=== PATIENT | female | born 1945 ===

== ENCOUNTER 2017-10-04 23:40 | Inpatient (IN) | payer MEDICARE ==
[2017-10-04 23:40] VITALS: BMI 22.6
--- NOTE | 2017-10-05 00:31 | C.PDOC ---
History Of Present Illness 72 year old female with PMHx of ischemic stroke on 2016 presents to the ED for evaluation. Patient was treated at [facility], patient had resulted left sided hemiparesis. Patient has been going to PT since that time. Patient now is c/o worsening weakness to her left side. Patient went to PT today but she reports she has been feeling weaker than usual, decreased ability to walk with her cane. Patient denies injury, fall, trauma, visual changes, headache, nausea , vomit, sensory loss. Chief Complaint (Nursing): Weakness/Neurological Deficit History Per: Patient History/Exam Limitations: no limitations Onset/Duration Of Symptoms: Days Current Symptoms Are (Timing): Still Present Number Of Syncopal Episodes: 1 Activity At Onset Of Symptoms: Walking Seizure Or Post-ictal Symptoms: None Fall Associated With With Symptoms: No Severity: None Recent travel outside of the [place]: No Additional History Per: Patient Past Medical History Reviewed: Historical Data, Nursing Documentation, Vital Signs Vital Signs: Last Vital Signs Temp 97.9 F 10/05/17 03:12 Pulse 74 10/05/17 03:12 Resp 20 10/05/17 03:12 BP 164/70 H 10/05/17 03:12 Pulse Ox 97 10/05/17 03:12 - Medical History PMH: Gastritis, HTN, Hypercholesterolemia Denies: HIV, Chronic Kidney Disease Other PMH: Ischemic stroke 2017 Surgical History: No Surg Hx - [facility] Procedures ENDO EXCISION/DEST OF LESION OR TISSUE OF STOMACH (11/08/13) ENDOSC POLYPECTOMY OF LG INTEST (11/08/13) EXERCISE TREATMENT OF MUSCULOSK WHOLE USING ASSIST EQUIPMENT (04/04/17) GAIT TRAINING/AMBULAT TREATMENT USING ASSIST EQUIPMENT (04/04/17) HOME MANAGEMENT TREATMENT USING ASSIST EQUIPMENT (04/04/17) Family History: States: Unknown Family Hx - Social History Hx Alcohol Use: No Hx Substance Use: No - Immunization History Hx Tetanus Toxoid Vaccination: No Hx Influenza Vaccination: Yes Hx Pneumococcal Vaccination: No Review Of Systems Constitutional: Negative for: Fever, Chills Eyes: Negative for: Vision Change Cardiovascular: Negative for: Chest Pain, Palpitations Respiratory: Negative for: Cough, Shortness of Breath Skin: Negative for: Rash Neurological: Positive for: Weakness. Negative for: Headache, Dizziness Physical Exam - Physical Exam Appears: Non-toxic, No Acute Distress Skin: Normal Color, Warm, Dry Head: Atraumatic, Normacephalic Eye(s): bilateral: Normal Inspection, PERRL, EOMI Oral Mucosa: Moist Neck: Normal ROM, Supple Chest: Symmetrical Cardiovascular: Rhythm Regular Respiratory: Normal Breath Sounds, No Rales, No Rhonchi, No Wheezing Gastrointestinal/Abdominal: Soft, No Tenderness, No Guarding, No Rebound Extremity: Left: Other (left upper arm muscle atrophy 2/5 strenght, leg 2/5 strenght ), Bilateral: Atraumatic, Normal Color And Temperature Pulses: Left Radial: Normal, Right Radial: Normal, Left Dorsalis Pedis: Normal, Right Dorsalis Pedis: Normal Neurological/Psych: Oriented x3, Normal Speech, Normal Cranial Nerves, Normal Sensation Gait: With Assistance ED Course And Treatment - Laboratory Results Result Diagrams: 10/05/17 01:43 10/05/17 01:43 ECG: Interpreted By Me, Viewed By Me ECG Rhythm: Sinus Rhythm, 1st Degree HB, R BBB, Nonspecific Changes (St/T ) Interpretation Of ECG: Compared to old EKG RBBB and left anterior hemiblock are new Rate From EC (BPM) O2 Sat by Pulse Oximetry: 97 (ON RA) Pulse Ox Interpretation: Normal - CT Scan/US CT head Other Rad Studies (CT/US): Read By Radiologist, Radiology Report Reviewed CT/US Interpretation: EXAM: CT Head Without Intravenous Contrast. CLINICAL HISTORY: 72 years old, female; Seizure. TECHNIQUE: Axial computed tomography images of the head/brain without intravenous contrast. All CT scans at. this facility use at least one of these dose optimization techniques: automated exposure control; mA. and/or kV adjustment per patient size (includes targeted exams where dose is matched to clinical. indication); or iterative reconstruction. COMPARISON: No relevant prior studies available. FINDINGS: Brain: Mild cerebral atrophy with prominence of the bifrontal sulci. Old infarcts in the right side of the. antonio, right caudate nucleus and right internal capsule. Hypoattenuation in the periventricular white. matter adjacent to the right frontal horn. Bilateral basal ganglia calcifications. There is no acute. cortical infarct, parenchymal hemorrhage, edema, midline shift or extra-axial collection. The. cerebellum is unremarkable. Small falcine lipoma. Ventricles: The ventricles are normal in size. Bones/joints: No skull fracture. Soft tissues: Calcified transverse ligament. Vasculature: The intracranial carotid arteries are calcified. 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 Dehiscence or old fracture of the right lamina papyracea. Small intraorbital fat protruding into the right ethmoid air cell. No air-fluid levels in the paranasal. sinuses. Mastoid air cells: The mastoid air cells are clear without air-fluid levels. Orbits: Left cataract surgery. IMPRESSION : Old infarcts in the right side of the antonio, right caudate nucleus and right internal capsule. No acute. infarct or hemorrhage. NIHSS Stroke Scale 2 - Date/Time Evaluation Performed Date Performed: 10/05/17 Time Performed: 02:22 When Was NIHSS Performed: 24 hours post onset S/S Medical Decision Making Medical Decision Making: Impression: subacute new left hemiparesis, started more than 24 hrs ago Plan: * CT head * EKG * Labs * UA * Admit patient to Medicine for further evaluation. Disposition - Disposition Disposition: HOSPITALIZED Disposition Time: 06:44 Condition: FAIR - Clinical Impression Clinical Impression: Acute CVA (cerebrovascular accident) - Scribe Statement The provider has reviewed the documentation as recorded by the Scribe Yordan Keenan All medical record entries made by the Scribe were at my direction and personally dictated by me. I have reviewed the chart and agree that the record accurately reflects my personal performance of the history, physical exam, medical decision making, and the department course for this patient. I have also personally directed, reviewed, and agree with the discharge instructions and disposition.
[2017-10-05 01:46] LABS: BASO # 0.1 K/uL (0.0-0.2); BASO % 0.9 % (0.0-2.0); EOS # 0.1 K/uL (0.0-0.7); HEMOGLOBIN 14.1 g/dL (11.0-16.0); LYMPH # 1.3 K/uL (1.0-4.3); LYMPH % 12.4 % (20.0-40.0); MEAN CELL VOLUME 83.2 fL (81.0-99.0); MEAN CORPUSCULAR HEMOGLOBIN 28.4 pg (27.0-31.0); MEAN CORPUSCULAR HGB CONC 34.1 g/dL (33.0-37.0); MEAN PLATELET VOLUME 8.6 fL (7.2-11.7); MONO # 0.9 K/uL (0.0-0.8); MONO % 8.5 % (0.0-10.0); NEUT # 8.1 K/uL (1.8-7.0); NEUT % 77.2 % (50.0-75.0); NRBC % 0.1 % (0.0-2.0); RBC 4.97 Mil/uL (3.80-5.20); RED CELL DISTRIBUTION WIDTH 13.9 % (11.5-14.5); WHITE BLOOD COUNT 10.5 K/uL (4.8-10.8)
[2017-10-05 01:58] LABS: ALB/GLOB RATIO 1.3 (1.0-2.1); ALBUMIN 4.6 g/dL (3.5-5.0); GFR AFRICAN-AMERICAN > 60; GFR NON-AFRICAN AMERICAN > 60
[2017-10-05 02:11] LABS: ALT/SGPT 35 U/L (9-52); AST/SGOT 54 U/L (14-36); BLOOD UREA NITROGEN 13 mg/dL (7-17)
[2017-10-05] MEDS ORDERED: Potassium Chloride 20 mEq/15 ml LIQ UD PO STA (02:27)
[2017-10-05 03:00] LABS: SQUAMOUS EPITHIAL 23 /hpf (0-5); URINE BACTERIA RARE (<OCC); URINE BILIRUBIN NEGATIVE (NEGATIVE); URINE BLOOD 2+ (NEGATIVE); URINE CLARITY Hazy (Clear); URINE COLOR Yellow (YELLOW); URINE GLUCOSE (UA) 3+ mg/dL (Normal); URINE LEUKOCYTE ESTERASE 1+ Leu/uL (Negative); URINE PROTEIN 2+ mg/dL (NEGATIVE); URINE UROBILINOGEN NORMAL mg/dL (0.2-1.0)
[2017-10-05] MEDS ORDERED: OLOPATADINE 0.1% OU PRN (03:24)
--- NOTE | 2017-10-05 08:36 | CP.PCM.HP ---
History of Present Illness - History of Present Illness History of Present Illness: This is a 72 y/o female diabetic, hypertensive with history of stroke in February 2017 who was brought to the ER because of worsening L hemiparesis. Patient has had intensive physical therapy since her stroke and was able to walk with walker/cane as of last office visit about 6 weeks ago. She has been on home PT and has progressed well until the day of admission when she suddenly became very weak and noted that her L hemiparesis has worsened. She said that she woke up on the morning of admission and could not get OOB feeling very weak and was unable to move her L leg like she did the previous day. A new physical therapist came to her house and she was unable to do the exercises she used to do with her old physical therapist who was given another assignment. She denies any history of fall or any trauma. No headache or seizure. She did complain of loss of appetite and inability to eat because of nausea or vomiting over the last week. She claims to have lost about 20 lbs over the last month as she kept bringing up whitish pleghm unable to eat much. She denies any abdominal pain, shortness of breath or palpitations. She does admit to occasional lightheadedness. She was advised to be admitted for further evaluation for a probable new stroke. She denies any dysuria or fever but claims to be going to have frequency of urination. Review of Systems - Review of Systems All systems: reviewed and no additional remarkable complaints except - Constitutional Constitutional: Weight Loss, Weakness - Cardiovascular Cardiovascular: Lightheadedness - Gastrointestinal Gastrointestinal: Bloating, Dyspepsia, Nausea, Vomiting - Musculoskeletal Musculoskeletal: Abnormal Gait - Neurological Neurological: Abnormal Gait, Dizziness, Focal Weakness Past Patient History - Infectious Disease Hx of Infectious Diseases: None - Past Medical History & Family History Past Medical History?: Yes - Past Social History Smoking Status: Never Smoked Chewing Tobacco Use: No Cigar Use: No Alcohol: None Home Situation {Lives}: Alone - CARDIAC Hx Hypercholesterolemia: Yes Hx Hypertension: Yes - PULMONARY Hx Respiratory Disorders: No - NEUROLOGICAL Hx Neurological Disorder: Yes HX Cerebrovascular Accident: Yes (feb 2017) - HEENT Hx HEENT Problems: Yes Other/Comment: hx right eye surgery-macular - RENAL Hx Chronic Kidney Disease: No - ENDOCRINE/METABOLIC Hx Endocrine Disorders: Yes Hx Diabetes Mellitus Type 2: Yes - HEMATOLOGICAL/ONCOLOGICAL Hx Human Immunodeficiency Virus (HIV): No - INTEGUMENTARY Hx Dermatological Problems: No - MUSCULOSKELETAL/RHEUMATOLOGICAL Hx Musculoskeletal Disorders: Yes Hx Falls: Yes (2005;February 2017) - GASTROINTESTINAL Hx Gastrointestinal Disorders: Yes Hx Gastritis: Yes Hx Vomiting: Yes - GENITOURINARY/GYNECOLOGICAL Hx Genitourinary Disorders: No - PSYCHIATRIC Hx Substance Use: No - SURGICAL HISTORY Hx Surgeries: Yes Hx Hysterectomy: Yes (30 yrs ago) Other/Comment: pus removed from left leg - ANESTHESIA Hx Anesthesia: Yes Hx Anesthesia Reactions: No Hx Malignant Hyperthermia: No Meds Allergies/Adverse Reactions: Allergies Allergy/AdvReac Type Severity Reaction Status Date / Time aspirin AdvReac Intermediate ITCHING Verified 04/04/17 20:11 Physical Exam - Constitutional Appears: No Acute Distress - Head Exam Head Exam: NORMAL INSPECTION - Eye Exam Eye Exam: Normal appearance - ENT Exam ENT Exam: Mucous Membranes Moist, Normal Exam - Neck Exam Neck exam: Positive for: Normal Inspection - Respiratory Exam Respiratory Exam: Clear to Auscultation Bilateral, NORMAL BREATHING PATTERN - Cardiovascular Exam Cardiovascular Exam: REGULAR RHYTHM, +S1, +S2 - GI/Abdominal Exam GI & Abdominal Exam: Normal Bowel Sounds, Soft - Extremities Exam Extremities exam: Positive for: pedal pulses present - Neurological Exam Neurological exam: Alert, Oriented x3 Additional comments: L hemiparesis, L Babinski+ - Psychiatric Exam Psychiatric exam: Normal Affect, Normal Mood - Skin Skin Exam: Dry, Intact, Normal Color, Warm Results - Vital Signs Recent Vital Signs: Last Vital Signs Temp 97.9 F 10/05/17 03:12 Pulse 74 10/05/17 03:12 Resp 20 10/05/17 03:12 BP 164/70 H 10/05/17 03:12 Pulse Ox 97 10/05/17 06:45 - Labs Result Diagrams: 10/05/17 01:43 10/05/17 01:43 Labs: Laboratory Results - last 24 hr 10/05/17 10/05/17 10/05/17 00:24 01:43 01:43 WBC 10.5 RBC 4.97 Hgb 14.1 Hct 41.3 MCV 83.2 MCH 28.4 MCHC 34.1 RDW 13.9 Plt Count 285 MPV 8.6 Neut % (Auto) 77.2 H Lymph % (Auto) 12.4 L [place] % (Auto) 8.5 Eos % (Auto) 1.0 Baso % (Auto) 0.9 Neut # (Auto) 8.1 H Lymph # (Auto) 1.3 [place] # (Auto) 0.9 H Eos # (Auto) 0.1 Baso # (Auto) 0.1 Sodium 142 Potassium 3.3 L Chloride 103 Carbon Dioxide 21 L Anion Gap 21 H BUN 13 Creatinine 0.8 Est GFR ( Amer) > 60 Est GFR (Non-Af Amer) > 60 POC Glucose (mg/dL) 196 H Random Glucose 207 H Calcium 10.0 Total Bilirubin 1.1 AST 54 H ALT 35 Alkaline Phosphatase 117 Troponin I 0.0370 Total Protein 8.1 Albumin 4.6 Globulin 3.5 Albumin/Globulin Ratio 1.3 Urine Color Urine Clarity Urine pH Ur Specific [place] Urine Protein Urine Glucose (UA) Urine Ketones Urine Blood Urine Nitrate Urine Bilirubin Urine Urobilinogen Ur Leukocyte Esterase Urine WBC (Auto) Urine RBC (Auto) Ur Squamous Epith Cells Urine Bacteria Hyaline Casts 10/05/17 02:53 WBC RBC Hgb Hct MCV MCH MCHC RDW Plt Count MPV Neut % (Auto) Lymph % (Auto) [place] % (Auto) Eos % (Auto) Baso % (Auto) Neut # (Auto) Lymph # (Auto) [place] # (Auto) Eos # (Auto) Baso # (Auto) Sodium Potassium Chloride Carbon Dioxide Anion Gap BUN Creatinine Est GFR ( Amer) Est GFR (Non-Af Amer) POC Glucose (mg/dL) Random Glucose Calcium Total Bilirubin AST ALT Alkaline Phosphatase Troponin I Total Protein Albumin Globulin Albumin/Globulin Ratio Urine Color Yellow Urine Clarity Hazy Urine pH 5.0 Ur Specific [place] 1.016 Urine Protein 2+ H Urine Glucose (UA) 3+ H Urine Ketones 1+ H Urine Blood 2+ H Urine Nitrate Negative Urine Bilirubin Negative Urine Urobilinogen Normal Ur Leukocyte Esterase 1+ H Urine WBC (Auto) 37 H Urine RBC (Auto) 36 H Ur Squamous Epith Cells 23 H Urine Bacteria Rare Hyaline Casts 3-5 H Assessment & Plan (1) Acute CVA (cerebrovascular accident) Assessment and Plan: Worsening L hemiparesis most probably a new stroke on old one in Feb 2017. Will get neuro consutl. CT Scan of the head reportedlys hows old cerebral infarct. MRI of the Head requested. Monitor neurological status. On Plavix and ASA. Status: Acute Priority: High (2) UTI (urinary tract infection) Assessment and Plan: abnormal u/a. Will send for c/s and start on antibiotic empirically. Status: Acute Priority: High (3) Weight loss of more than 10% body weight Assessment and Plan: Patient also complaining of persistent nausea and vomiting over the last 1-2 weeks and unable to eat well. R/O GERD vs diabetic gastroparesis. Was on omeprazole with no improvement and started now on metoclopramide. Status: Acute Priority: High (4) Hypertension Assessment and Plan: Seems under control on multiple meds. Will continue same for now and monitor BP. Status: Acute Priority: High (5) Diabetes mellitus Assessment and Plan: On Metformin and Januvia. Will get HgbA1c and put on accucheck Status: Acute Priority: High
--- NOTE | 2017-10-05 09:57 | CT ---
PROCEDURE: CT HEAD WITHOUT CONTRAST. HISTORY: seizure COMPARISON: Comparison made with CT scan brain dated 02/05/2016. TECHNIQUE: Axial computed tomography images were obtained through the head/brain without intravenous contrast. Radiation dose: Total exam DLP = 691.78 mGy-cm. This CT exam was performed using one or more of the following dose reduction techniques: Automated exposure control, adjustment of the mA and/or kV according to patient size, and/or use of iterative reconstruction technique. FINDINGS: HEMORRHAGE: No acute parenchymal, subarachnoid or extra-axial hemorrhage. Hemorrhage. BRAIN: Mild chronic periventricular white matter ischemic changes with chronic appearing bilateral basal nuclei lacunar type infarcts the largest involving the right caudate head anterior limb right internal capsule. . There is also relatively large chronic appearing right-sided pontine chronic infarct. There is a small amount of fat within the anterior aspect of the interhemispheric fissure anteriorly consistent with some residual primitive menix No obvious parenchymal nor extra-axial mass or collection seen on this noncontrast study. Moderate generalized volume loss. Vascular calcifications both carotid siphons and the left vertebral artery. VENTRICLES: Unremarkable. No hydrocephalus. CALVARIUM: Unremarkable. . . PARANASAL SINUSES: Unremarkable as visualized. No significant inflammatory changes. . 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 MASTOID AIR CELLS: Unremarkable as visualized. No inflammatory changes. OTHER FINDINGS: Re- demonstrated old fracture deformities of the right orbital floor and right lamina papyracea. . Interval right-sided cataract surgery. IMPRESSION: No acute intracranial hemorrhage. Chronic white matter, basal nuclei and brainstem ischemic changes as described. . Moderate generalized volume loss
[2017-10-05 10:33] LABS: HDL CHOLESTEROL 38 mg/dL (30-70)
[2017-10-05 10:43] LABS: LDL CHOLESTEROL 30 mg/dL (0-129)
[2017-10-05] MEDS: (Novolin R) Insulin Human Regular 100 units/ml vial SC SCH ×3 (12:00→21:52)
--- NOTE | 2017-10-05 12:30 | CP.PCM.CON ---
History of Present Illness - History of Present Illness History of Present Illness: Neurology Consultation Note: Mrs. Burrows is a 72-year-old woman with a past medical history of DM, HTN, previous stroke in , who has some residual left side weakness, but was able to ambulate with a walker, but yesterday morning, she appeared to be significantly weaker than the previous day. She has had decreased appetite and complains of nausea/vomiting with a weight loss of about 15-20 lbs over the last month. CT scan of the head showed a chronic right pontine stroke, but no new findings. Labs were significant for UTI and hyperglycemia. Neurology was consulted to assist with the management and care. Review of Systems - Review of Systems All systems: reviewed and no additional remarkable complaints except Past Patient History - Infectious Disease Hx of Infectious Diseases: None - Past Medical History & Family History Past Medical History?: Yes - Past Social History Smoking Status: Never Smoked Chewing Tobacco Use: No Cigar Use: No Alcohol: None Home Situation {Lives}: Alone - CARDIAC Hx Hypercholesterolemia: Yes Hx Hypertension: Yes - PULMONARY Hx Respiratory Disorders: No - NEUROLOGICAL Hx Neurological Disorder: Yes HX Cerebrovascular Accident: Yes (feb 2017) - HEENT Hx HEENT Problems: Yes Other/Comment: hx right eye surgery-macular - RENAL Hx Chronic Kidney Disease: No - ENDOCRINE/METABOLIC Hx Endocrine Disorders: Yes Hx Diabetes Mellitus Type 2: Yes - HEMATOLOGICAL/ONCOLOGICAL Hx Human Immunodeficiency Virus (HIV): No - INTEGUMENTARY Hx Dermatological Problems: No - MUSCULOSKELETAL/RHEUMATOLOGICAL Hx Musculoskeletal Disorders: Yes Hx Falls: Yes (2005;February 2017) - GASTROINTESTINAL Hx Gastrointestinal Disorders: Yes Hx Gastritis: Yes Hx Vomiting: Yes - GENITOURINARY/GYNECOLOGICAL Hx Genitourinary Disorders: No - PSYCHIATRIC Hx Substance Use: No - SURGICAL HISTORY Hx Surgeries: Yes Hx Hysterectomy: Yes (30 yrs ago) Other/Comment: pus removed from left leg - ANESTHESIA Hx Anesthesia: Yes Hx Anesthesia Reactions: No Hx Malignant Hyperthermia: No Meds Allergies/Adverse Reactions: Allergies Allergy/AdvReac Type Severity Reaction Status Date / Time aspirin AdvReac Intermediate ITCHING Verified 04/04/17 20:11 - Medications Medications: Current Medications Amlodipine Besylate (Norvasc) 2.5 mg PO DAILY SHEY Last Admin: 10/05/17 11:02 Dose: 2.5 mg Clonidine HCl (Catapres-Tts2 0.2 Mg/24 Hr) 1 patch TD Q7D@1000 [facility] Clopidogrel Bisulfate (Plavix) 75 mg PO DAILY [facility] Last Admin: 10/05/17 11:02 Dose: 75 mg Insulin Human Regular (Novolin R) 0 unit SC ACHS [facility] PRN Reason: Protocol Labetalol HCl (Trandate) 200 mg PO BID [facility] Last Admin: 10/05/17 11:00 Dose: 200 mg Losartan Potassium (Cozaar) 100 mg PO DAILY [facility] Last Admin: 10/05/17 11:01 Dose: 100 mg Metformin HCl (Glucophage) 850 mg PO BID [facility] Last Admin: 10/05/17 11:02 Dose: 850 mg Metoclopramide HCl (Reglan) 5 mg PO TID [facility] Last Admin: 10/05/17 11:00 Dose: 5 mg Montelukast Sodium (Singulair) 10 mg PO HS [facility] Rosuvastatin Calcium (Crestor) 20 mg PO [facility] Physical Exam - Neurological Exam Neurological exam: Abnormal Gait, Alert, CN II-XII Intact, Oriented x3 Additional comments: AAOX3, speech was dysarthric. Reflexes brisk on the left upper and lower extremities with upgoing planar responses. Clonus was noted on LLE. Strength was 3/5 in both upper and lower extremities on the left. She had decreased hand etl analyst and her weakness was more proximal than distal on the LUE. Right upper and lower extremities were full in strength. Sensation was relatively symmetrical throughout. Gait was not assessed. Romberg was not assessed. Results - Vital Signs Recent Vital Signs: Last Vital Signs Temp 98.8 F 10/05/17 08:46 Pulse 75 10/05/17 08:46 Resp 18 10/05/17 08:46 BP 167/67 H 10/05/17 08:46 Pulse Ox 96 10/05/17 08:46 - Labs Result Diagrams: 10/05/17 01:43 10/05/17 01:43 Labs: Laboratory Results - last 24 hr 10/05/17 10/05/17 10/05/17 00:24 01:43 01:43 WBC 10.5 RBC 4.97 Hgb 14.1 Hct 41.3 MCV 83.2 MCH 28.4 MCHC 34.1 RDW 13.9 Plt Count 285 MPV 8.6 Neut % (Auto) 77.2 H Lymph % (Auto) 12.4 L [place] % (Auto) 8.5 Eos % (Auto) 1.0 Baso % (Auto) 0.9 Neut # (Auto) 8.1 H Lymph # (Auto) 1.3 [place] # (Auto) 0.9 H Eos # (Auto) 0.1 Baso # (Auto) 0.1 Sodium 142 Potassium 3.3 L Chloride 103 Carbon Dioxide 21 L Anion Gap 21 H BUN 13 Creatinine 0.8 Est GFR ( Amer) > 60 Est GFR (Non-Af Amer) > 60 POC Glucose (mg/dL) 196 H Random Glucose 207 H Calcium 10.0 Total Bilirubin 1.1 AST 54 H ALT 35 Alkaline Phosphatase 117 Troponin I 0.0370 Total Protein 8.1 Albumin 4.6 Globulin 3.5 Albumin/Globulin Ratio 1.3 Triglycerides 200 H Cholesterol 104 LDL Cholesterol Direct 30 HDL Cholesterol 38 Urine Color Urine Clarity Urine pH Ur Specific [place] Urine Protein Urine Glucose (UA) Urine Ketones Urine Blood Urine Nitrate Urine Bilirubin Urine Urobilinogen Ur Leukocyte Esterase Urine WBC (Auto) Urine RBC (Auto) Ur Squamous Epith Cells Urine Bacteria Hyaline Casts 10/05/17 10/05/17 10/05/17 02:53 06:11 11:02 WBC RBC Hgb Hct MCV MCH MCHC RDW Plt Count MPV Neut % (Auto) Lymph % (Auto) [place] % (Auto) Eos % (Auto) Baso % (Auto) Neut # (Auto) Lymph # (Auto) [place] # (Auto) Eos # (Auto) Baso # (Auto) Sodium Potassium Chloride Carbon Dioxide Anion Gap BUN Creatinine Est GFR ( Amer) Est GFR (Non-Af Amer) POC Glucose (mg/dL) 197 H 255 H Random Glucose Calcium Total Bilirubin AST ALT Alkaline Phosphatase Troponin I Total Protein Albumin Globulin Albumin/Globulin Ratio Triglycerides Cholesterol LDL Cholesterol Direct HDL Cholesterol Urine Color Yellow Urine Clarity Hazy Urine pH 5.0 Ur Specific [place] 1.016 Urine Protein 2+ H Urine Glucose (UA) 3+ H Urine Ketones 1+ H Urine Blood 2+ H Urine Nitrate Negative Urine Bilirubin Negative Urine Urobilinogen Normal Ur Leukocyte Esterase 1+ H Urine WBC (Auto) 37 H Urine RBC (Auto) 36 H Ur Squamous Epith Cells 23 H Urine Bacteria Rare Hyaline Casts 3-5 H Assessment & Plan (1) Left-sided weakness Assessment and Plan: The patient has a history of right pontine infarct and appears to have a UTI. There are no new findings on CT head to suggest a new stroke. However, CT is not as sensitive in the posterior fossa for acute findings. It is more likely that she has resurgence of the previous stroke symptoms due to UTI, rather than a new stroke. I recommend the followin. Telemetry 2. MRI brain without contrast, MRA head/neck without contrast 3. Echocardiogram 4. PT/OT eval and treatment 5. Lipid panel, HbA1c, B12, folate, homocysteine, vitamin D level, TSH, T3/4 6. Continue Plavix 75 mg daily 7. Fluids with NS at 100 mL/hr 8. Treat underlying infection 9. Normalize BP and serum glucose 10. Case management consult Thank you. Status: Acute Priority: High
--- NOTE | 2017-10-05 13:05 | RAD ---
PROCEDURE: Lateral chest performed. Correlation made with frontal view chest obtained on concurrent obstructive series. HISTORY: HTN, stroke COMPARISON: None available. FINDINGS: LUNGS: Minor linear atelectasis and or scarring changes left retrocardiac region. PLEURA: No pneumothorax or pleural fluid seen. CARDIOVASCULAR: Heart appears mildly enlarged. OSSEOUS STRUCTURES: Minor multilevel degenerative spondylosis of the thoracic spine. Minor chronic anterior wedge deformities of several mid thoracic segments. Mild diffuse demineralization. VISUALIZED UPPER ABDOMEN: No gross free intraperitoneal air seen under the diaphragmatic surfaces OTHER FINDINGS: None. IMPRESSION: No active disease.
[2017-10-05] MEDS: Ciprofloxacin 400mg/200ml D5W 400 MG/200 ML BAG IVPB SCH (15:01)
--- NOTE | 2017-10-05 16:01 | RAD ---
PROCEDURE: Radiographs of the chest and abdomen (obstructive series) HISTORY: nausea/vomiting COMPARISON: No prior. TECHNIQUE: AP radiograph of the chest, with upright and supine radiographs of the abdomen. FINDINGS: CHEST: Lungs: Clear. Cardiovascular: Normal size heart. No pulmonary vascular congestion. Pleura: No pleural fluid. No pneumothorax. Other findings: None. ABDOMEN AND PELVIS: Bowel: Unremarkable bowel gas pattern. No evidence of mechanical obstruction. Free air: None. Bones: Unremarkable. Other findings: None. IMPRESSION: Unremarkable radiographs of chest and abdomen. No evidence of mechanical bowel obstruction.
[2017-10-06] MEDS: Ciprofloxacin 400mg/200ml D5W 400 MG/200 ML BAG IVPB SCH ×2 (02:48→15:53)
--- NOTE | 2017-10-06 07:34 | CP.PCM.PN ---
Subjective - Date & Time of Evaluation Date of Evaluation: 10/06/17 Time of Evaluation: 07:31 - Subjective Subjective: Ms. Burrows was seen and examined at the bedside. She is alert, oriented in all spheres. She denies any dizziness, weakness, headache, nause, or vomiting. She is able to follow simple commands with her left side is weaker than the right side and able to let staff know her immediate needs. She has the SCD on her bilateral lower extremities. There was no untoward events overnight. Objective - Vital Signs/Intake and Output Vital Signs (last 24 hours): Temp Pulse Resp BP Pulse Ox 98 F 83 18 132/63 98 10/06/17 04:05 10/06/17 04:05 10/06/17 04:05 10/06/17 04:05 10/06/17 04:05 Intake and Output: 10/06/17 10/06/17 06:59 18:59 Intake Total 240 Balance 240 - Medications Medications: Current Medications Amlodipine Besylate (Norvasc) 2.5 mg PO DAILY [facility] Last Admin: 10/05/17 11:02 Dose: 2.5 mg Clonidine HCl (Catapres-Tts2 0.2 Mg/24 Hr) 1 patch TD Q7D@1000 [facility] Clopidogrel Bisulfate (Plavix) 75 mg PO DAILY [facility] Last Admin: 10/05/17 11:02 Dose: 75 mg Heparin Sodium (Porcine) (Heparin) 5,000 units SC Q12 [facility] Ciprofloxacin (Cipro 400mg/200ml Dsw) 400 mg in 200 mls @ 133 mls/hr IVPB Q12H [facility] PRN Reason: Protocol Last Admin: 10/06/17 02:48 Dose: 133 mls/hr Sodium Chloride (Sodium Chloride 0.9%) 1,000 mls @ 100 mls/hr IV .Q10H [facility] Insulin Human Regular (Novolin R) 0 unit SC ACHS [facility] PRN Reason: Protocol Last Admin: 10/05/17 21:52 Dose: Not Given Labetalol HCl (Trandate) 200 mg PO BID [facility] Last Admin: 10/05/17 18:00 Dose: 200 mg Losartan Potassium (Cozaar) 100 mg PO DAILY [facility] Last Admin: 10/05/17 11:01 Dose: 100 mg Metformin HCl (Glucophage) 850 mg PO BID [facility] Last Admin: 07/08/18 18:00 Dose: 850 mg Metoclopramide HCl (Reglan) 5 mg PO TID [facility] Last Admin: 10/06/17 07:19 Dose: 5 mg Montelukast Sodium (Singulair) 10 mg PO [facility] Last Admin: 10/05/17 21:32 Dose: 10 mg Rosuvastatin Calcium (Crestor) 20 mg PO HS [facility] Last Admin: 10/05/17 21:32 Dose: 20 mg Sitagliptin Phosphate (Januvia) 100 mg PO DAILY [facility] - Labs Labs: 10/05/17 01:43 10/05/17 01:43 - Constitutional Appears: No Acute Distress - Head Exam Head Exam: NORMAL INSPECTION - Eye Exam Pupil Exam: PERRL - Neurological Exam Neurological Exam: Alert, Awake, Oriented x3 Neuro motor strength exam: Left Upper Extremity: 3, Right Upper Extremity: 5, Left Lower Extremity: 3, Right Lower Extremity: 5 Additional comments: alert, oriented, follows simple commands. Assessment and Plan (1) Left-sided weakness Assessment & Plan: Continue all current medical, physical, and occupational therapies. Pending MRI of the brain, echocardiogram, and hypercoagulability studies. Recommend normal saline IVF for hydration ( please reduce if blood pressure is elevated above 180 ), glycemic control, keep the head elevated at least 30 degrees. Status: Acute
[2017-10-06 08:00] LABS: BASO # 0.1 K/uL (0.0-0.2); BASO % 0.6 % (0.0-2.0); EOS # 0.1 K/uL (0.0-0.7); EOS % 1.6 % (0.0-4.0); LYMPH # 0.8 K/uL (1.0-4.3); LYMPH % 8.6 % (20.0-40.0); MEAN CELL VOLUME 82.6 fL (81.0-99.0); MEAN CORPUSCULAR HEMOGLOBIN 27.9 pg (27.0-31.0); MEAN CORPUSCULAR HGB CONC 33.8 g/dL (33.0-37.0); MEAN PLATELET VOLUME 8.8 fL (7.2-11.7); MONO # 0.9 K/uL (0.0-0.8); MONO % 9.5 % (0.0-10.0); NEUT # 7.4 K/uL (1.8-7.0); NEUT % 79.7 % (50.0-75.0); PLATELET COUNT 225 K/uL (130-400); RBC 4.37 Mil/uL (3.80-5.20); WHITE BLOOD COUNT 9.3 K/uL (4.8-10.8)
[2017-10-06 08:03] LABS: HEMOGLOBIN 12.2 g/dL (11.0-16.0)
[2017-10-06] MEDS: (Novolin R) Insulin Human Regular 100 units/ml vial SC SCH ×4 (08:03→21:50)
[2017-10-06] MEDS: Sodium Chloride 0.9% 1,000 ML IV SCH ×2 (08:04→21:52)
[2017-10-06 08:18] LABS: ALB/GLOB RATIO 1.5 (1.0-2.1); ALBUMIN 3.8 g/dL (3.5-5.0); CALCIUM 9.4 mg/dl (8.6-10.4)
[2017-10-06 09:48] LABS: EOSINOPHIL 2 % (0-4); LYMPHOCYTE 7 % (20-40); MONOCYTE 7 % (0-10); NEUTROPHIL 83 % (50-75); PLATELET ESTIMATE NORMAL (NORMAL); REACTIVE LYMPHOCYTES 1 % (0-0); TOTAL CELLS COUNTED 100
[2017-10-06 09:49] LABS: OVALOCYTES SLIGHT
--- NOTE | 2017-10-06 10:48 | MRI ---
PROCEDURE: MRI BRAIN WITHOUT CONTRAST HISTORY: subacute CVA COMPARISON: Noncontrast head CT from 10/05/2017. TECHNIQUE: Multiplanar, multisequence MR images of the brain were obtained without intravenous contrast enhancement. FINDINGS: HEMORRHAGE: None DWI: No evidence of an acute or early subacute infarction. BRAIN PARENCHYMA: There is an old lacunar infarction in the right very frontal white matter. There is a large tear lacunar infarction in the right paramedian antonio. There are mild chronic microangiopathic changes. There is no mass, mass effect or abnormal extra-axial fluid collection. The midline sagittal structures are normal. VENTRICLES: The ventricles are normal in size, shape and configuration. CRANIUM: There is normal bone marrow signal. ORBITS: Grossly unremarkable. PARANASAL SINUSES/MASTOIDS: There is a small retention cyst/polyp in the left maxillary sinus, otherwise predominantly clear. VASCULAR SYSTEM: There are normal signal voids in the larger intracranial arteries. OTHER FINDINGS: None. IMPRESSION: No acute intracranial abnormality. Old lacunar infarctions in the right very frontal white matter and right paramedian antonio. Mild chronic microangiopathic changes and mild age-related global parenchymal volume loss.
[2017-10-06 11:25] LABS: T4 12.8 ug/dL (5.5-11.0)
--- NOTE | 2017-10-06 11:25 | MRI ---
PROCEDURE: Magnetic Resonance Angiography Brain HISTORY: Left-sided weakness COMPARISON: None available. TECHNIQUE: 3D time of flight MR angiography of the intracranial arteries was performed. Rotating maximum intensity projection images were generated. FINDINGS: INTERNAL CAROTID ARTERIES: Normal flow related signal. The skull base, petrous, cavernous and supraclinoid segments are bilaterally widely patient. ANTERIOR CEREBRAL ARTERIES: Normal flow related signal. The right A1 segment is aplastic, an anatomic variant. The left A1 and both A2 segments are widely patent. Smaller distal branches unremarkable, as visualized. MIDDLE CEREBRAL ARTERIES: Normal flow related signal. There is short segment narrowing in the left proximal M1 segment. M1 and M2 segments are widely patent. Perisylvian branches grossly symmetric. POSTERIOR CIRCULATION: Basilar Artery: Normal flow related signal Distal Vertebral Arteries: The right vertebral artery is hypoplastic. The left vertebral artery is dominant. There is mild irregularity in the distal vertebral arteries. Posterior Cerebral Arteries: Normal flow related signal with multifocal irregularity. Posterior Inferior Cerebellar Arteries: Normal flow related signal. ANEURYSM/ VASCULAR MALFORMATIONS: None. OTHER FINDINGS: None. IMPRESSION: No evidence of occlusion. Multifocal irregularity in the left proximal M1 segment, bilateral distal vertebral arteries and bilateral posterior cerebral arteries may be related to intracranial atherosclerosis.
[2017-10-06 11:40] LABS: T3 1.29 nmol/L (1.49-2.60)
--- NOTE | 2017-10-06 11:47 | MRI ---
PROCEDURE: MR Angiography of the neck without contrast HISTORY: left side weakness COMPARISON: None available. TECHNIQUE: 3D [id number] angiography of the neck was performed. Rotating maximum intensity projection images of the cervical carotid and vertebral arteries were generated. The origins of the common carotid arteries were not visualized, which is a limitation inherent to the non-contrast time of flight technique. FINDINGS: RIGHT CAROTID ARTERIES: Common Carotid Artery: Normal. Carotid Bifurcation: Normal. Internal Carotid Artery:Normal. External Carotid Artery (proximal branches): Normal. LEFT CAROTID ARTERIES: Common Carotid Artery: Normal. Carotid Bifurcation: Normal. Internal Carotid Artery:Normal. External Carotid Artery (proximal branches): Normal. VERTEBRAL ARTERIES: Right Vertebral Artery: The right vertebral artery is hypoplastic, an anatomic variant. Left Vertebral Artery: Normal. OTHER FINDINGS: None. IMPRESSION: No evidence of occlusion or hemodynamically significant stenosis in the internal carotid artery.
--- NOTE | 2017-10-06 12:16 | CP.PCM.PN ---
Subjective - Date & Time of Evaluation Date of Evaluation: 10/06/17 Time of Evaluation: 11:50 - Subjective Subjective: -Patient claims to feel better. L hemiparesis reportedly seems better -MRI report noted- no new infarct -MRA of head and neck- no correctable lesion -Echocardiogram done in March in [place]- noted. normal LA and LV size. No atrial septal defect. No thrombus, -Continue current Rx. Objective - Vital Signs/Intake and Output Vital Signs (last 24 hours): Temp Pulse Resp BP Pulse Ox 98.1 F 85 18 147/66 96 10/06/17 07:00 10/06/17 07:00 10/06/17 07:00 10/06/17 07:00 10/06/17 07:00 Intake and Output: 10/06/17 10/06/17 06:59 18:59 Intake Total 240 Balance 240 - Medications Medications: Current Medications Amlodipine Besylate (Norvasc) 2.5 mg PO DAILY [facility] Last Admin: 10/06/17 10:17 Dose: 2.5 mg Clonidine HCl (Catapres-Tts2 0.2 Mg/24 Hr) 1 patch TD Q7D@1000 [facility] Clopidogrel Bisulfate (Plavix) 75 mg PO DAILY [facility] Last Admin: 10/06/17 10:16 Dose: 75 mg Heparin Sodium (Porcine) (Heparin) 5,000 units SC Q12 [facility] Last Admin: 10/06/17 10:19 Dose: 5,000 units Ciprofloxacin (Cipro 400mg/200ml Dsw) 400 mg in 200 mls @ 133 mls/hr IVPB Q12H [facility] PRN Reason: Protocol Last Admin: 10/06/17 02:48 Dose: 133 mls/hr Sodium Chloride (Sodium Chloride 0.9%) 1,000 mls @ 100 mls/hr IV .Q10H [facility] Last Admin: 10/06/17 08:04 Dose: 100 mls/hr Potassium Chloride (Potassium Chloride 20 Meq/100 Ml) 20 meq in 100 mls @ 50 mls/hr IVPB Q2H [facility] Stop: 10/06/17 15:14 Last Admin: 10/06/17 09:59 Dose: 50 mls/hr Insulin Human Regular (Novolin R) 0 unit SC ACHS [facility] PRN Reason: Protocol Last Admin: 10/06/17 08:03 Dose: 2 units Labetalol HCl (Trandate) 200 mg PO BID [facility] Last Admin: 10/06/17 10:19 Dose: 200 mg Losartan Potassium (Cozaar) 100 mg PO DAILY [facility] Last Admin: 10/06/17 10:17 Dose: 100 mg Metformin HCl (Glucophage) 850 mg PO BID [facility] Last Admin: 10/06/17 10:19 Dose: 850 mg Metoclopramide HCl (Reglan) 5 mg PO 0600,1130,1630 [facility] Montelukast Sodium (Singulair) 10 mg PO [facility] Last Admin: 10/05/17 21:32 Dose: 10 mg Rosuvastatin Calcium (Crestor) 20 mg PO [facility] Last Admin: 10/05/17 21:32 Dose: 20 mg Sitagliptin Phosphate (Januvia) 100 mg PO DAILY [facility] Last Admin: 10/06/17 10:17 Dose: 100 mg - Labs Labs: 10/06/17 07:39 10/06/17 07:39 - Constitutional Appears: No Acute Distress - Head Exam Head Exam: NORMAL INSPECTION - ENT Exam ENT Exam: Normal Exam - Neck Exam Neck Exam: Normal Inspection - Respiratory Exam Respiratory Exam: Clear to Ausculation Bilateral, NORMAL BREATHING PATTERN - Cardiovascular Exam Cardiovascular Exam: REGULAR RHYTHM, +S1, +S2 - GI/Abdominal Exam GI & Abdominal Exam: Soft, Normal Bowel Sounds - Extremities Exam Additional comments: L hemiparesis - Neurological Exam Neurological Exam: Alert, Awake, Oriented x3 - Psychiatric Exam Psychiatric exam: Normal Affect, Normal Mood Assessment and Plan (1) UTI (urinary tract infection) Assessment & Plan: Continue Cipro for now. 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 Will resume PT/OT. Status: Chronic (3) Hypokalemia Assessment & Plan: on K supplement. Will monitor electrolytes. Status: Acute (4) Weight loss of more than 10% body weight Assessment & Plan: appetite remains poor but no more vomiting with metoclopramide Obstructive series- no evidence of mechanical obstruction. Will give supplemental nutrition Status: Acute (5) Diabetes mellitus Assessment & Plan: HgbA1c- 9.2 Status: Chronic (6) Hypertension Assessment & Plan: controlled current meds Status: Chronic (7) Acute CVA (cerebrovascular accident) Assessment & Plan: MRI- no new infarct ruling out new infarction. Findings consistent with old stroke. Status: Ruled-out
[2017-10-06] MEDS: Potassium Chloride 20 mEq ER Tab PO SCH ×2 (13:20→18:06)
--- NOTE | 2017-10-06 21:28 | CARD ---
APPROVED REPORT EKG Measurement Heart [id number] <Conclusion> Sinus rhythm with 1st degree AV block Right bundle branch block Left anterior fascicular block Bifascicular block Minimal voltage criteria for LVH, may be normal variant Septal infarct, age undetermined T wave abnormality, consider inferolateral ischemia Abnormal ECG
[2017-10-06] MEDS ORDERED: Insulin Detemir 100 units/ml Vial (Levemir) SC SCH (22:00)
[2017-10-07] MEDS: Ciprofloxacin 400mg/200ml D5W 400 MG/200 ML BAG IVPB SCH ×2 (02:05→14:10)
[2017-10-07] MEDS: Sodium Chloride 0.9% 1,000 ML IV SCH ×3 (06:00→13:15)
[2017-10-07 07:52] LABS: CALCIUM 9.1 mg/dl (8.6-10.4)
[2017-10-07] MEDS: (Novolin R) Insulin Human Regular 100 units/ml vial SC SCH ×4 (08:06→21:59)
[2017-10-07] MEDS: Potassium Chloride 20 mEq ER Tab PO SCH ×3 (09:55→17:00)
--- NOTE | 2017-10-07 12:06 | CP.PCM.PN ---
Subjective - Date & Time of Evaluation Date of Evaluation: 10/07/17 Time of Evaluation: 11:45 - Subjective Subjective: -Patient feeling better. had first PT this morning and got oob with assistance, otherwise doing well. -Tolerating diet well -K- still low. Continue potassium supplement -blood sugar noted, will adjust insulin. -Will get ADRIAN eval Objective - Vital Signs/Intake and Output Vital Signs (last 24 hours): Temp Pulse Resp BP Pulse Ox 98.2 F 105 H 20 159/74 H 96 10/07/17 07:00 10/07/17 09:53 10/07/17 07:00 10/07/17 09:53 10/07/17 07:00 Intake and Output: 10/07/17 10/07/17 06:59 18:59 Intake Total 800 Output Total 700 Balance 100 - Medications Medications: Current Medications Amlodipine Besylate (Norvasc) 2.5 mg PO DAILY [facility] Last Admin: 10/07/17 09:55 Dose: 2.5 mg Clonidine HCl (Catapres-Tts2 0.2 Mg/24 Hr) 1 patch TD Q7D@1000 [facility] Clopidogrel Bisulfate (Plavix) 75 mg PO DAILY [facility] Last Admin: 10/07/17 09:55 Dose: 75 mg Heparin Sodium (Porcine) (Heparin) 5,000 units SC Q12 [facility] Last Admin: 10/07/17 09:55 Dose: 5,000 units Ciprofloxacin (Cipro 400mg/200ml Dsw) 400 mg in 200 mls @ 133 mls/hr IVPB Q12H [facility] PRN Reason: Protocol Last Admin: 10/07/17 02:05 Dose: 133 mls/hr Sodium Chloride (Sodium Chloride 0.9%) 1,000 mls @ 100 mls/hr IV .Q10H [facility] Last Admin: 10/07/17 09:54 Dose: 100 mls/hr Insulin Detemir (Levemir) 14 unit SC HS [facility] Last Admin: 10/06/17 21:39 Dose: 14 units Insulin Human Regular (Novolin R) 0 unit SC ACHS [facility] PRN Reason: Protocol Last Admin: 10/07/17 11:56 Dose: 2 units Labetalol HCl (Trandate) 200 mg PO BID [facility] Last Admin: 10/07/17 09:55 Dose: 200 mg Losartan Potassium (Cozaar) 100 mg PO DAILY [facility] Last Admin: 10/07/17 09:55 Dose: 100 mg Metformin HCl (Glucophage) 850 mg PO BID [facility] Last Admin: 10/07/17 09:56 Dose: 850 mg Metoclopramide HCl (Reglan) 5 mg PO 0600,1130,1630 [facility] Last Admin: 10/07/17 11:57 Dose: 5 mg Montelukast Sodium (Singulair) 10 mg PO HS [facility] Last Admin: 10/06/17 21:39 Dose: 10 mg Potassium Chloride (K-Dur 20 Meq Er Tab) 20 meq PO TID [facility] Rosuvastatin Calcium (Crestor) 20 mg PO HS [facility] Last Admin: 10/06/17 21:47 Dose: 20 mg Sitagliptin Phosphate (Januvia) 100 mg PO DAILY [facility] Last Admin: 10/07/17 09:55 Dose: 100 mg - Labs Labs: 10/06/17 07:39 - Constitutional Appears: No Acute Distress - Head Exam Head Exam: NORMAL INSPECTION - Eye Exam Eye Exam: Normal appearance - ENT Exam ENT Exam: Normal Exam - Neck Exam Neck Exam: Normal Inspection - Respiratory Exam Respiratory Exam: Clear to Ausculation Bilateral, NORMAL BREATHING PATTERN - Cardiovascular Exam Cardiovascular Exam: REGULAR RHYTHM, +S1, +S2 - GI/Abdominal Exam GI & Abdominal Exam: Soft, Normal Bowel Sounds - Extremities Exam Extremities Exam: Normal Capillary Refill, Normal Inspection - Neurological Exam Neurological Exam: Alert, Awake, Oriented x3 Neuro motor strength exam: Left Upper Extremity: 2/1, Right Upper Extremity: 5, Left Lower Extremity: 3, Right Lower Extremity: 5 - Psychiatric Exam Psychiatric exam: Normal Affect, Normal Mood - Skin Skin Exam: Dry, Intact, Normal Color, Warm Assessment and Plan (1) UTI (urinary tract infection) Assessment & Plan: Urine c/s noted- no growth. Patient on empiric treatment with Cipro. Will continue with same as patient seems to be improving clinically. Repeat Urinalysis Status: Acute (2) Hypokalemia Assessment & Plan: On K supplement. Will check electrolytes tomorrow. Status: Acute (3) Weight loss of more than 10% body weight Assessment & Plan: appetite improving. Nausea nd vomiting resolved. Status: Acute (4) Diabetes mellitus Assessment & Plan: blpood suagr on the high side. Will adjust insulin for now. Status: Chronic (5) Hypertension Assessment & Plan: controlled on current meds. Status: Chronic (6) Acute CVA (cerebrovascular accident) Assessment & Plan: rued out. L hemiparesis is from old stroke in February. Status: Ruled-out
[2017-10-07] MEDS: Insulin Detemir 100 units/ml Vial (Levemir) SC SCH (22:00)
[2017-10-07 22:54] LABS: SQUAMOUS EPITHIAL 1 /hpf (0-5); URINE BACTERIA MANY (<OCC); URINE BILIRUBIN NEGATIVE (NEGATIVE); URINE BLOOD 2+ (NEGATIVE); URINE COLOR Straw (YELLOW); URINE GLUCOSE (UA) 3+ mg/dL (Normal); URINE LEUKOCYTE ESTERASE NEG Leu/uL (Negative); URINE PROTEIN NEGATIVE (NEGATIVE); URINE UROBILINOGEN NORMAL mg/dL (0.2-1.0)
[2017-10-07 22:55] LABS: URINE CLARITY SL HAZY (Clear)
[2017-10-08] MEDS: Sodium Chloride 0.9% 1,000 ML IV SCH ×2 (00:19→09:27)
[2017-10-08] MEDS: Ciprofloxacin 400mg/200ml D5W 400 MG/200 ML BAG IVPB SCH ×2 (02:02→15:04)
[2017-10-08 07:39] LABS: BASO # 0.1 K/uL (0.0-0.2); BASO % 0.9 % (0.0-2.0); EOS # 0.5 K/uL (0.0-0.7); EOS % 5.3 % (0.0-4.0); HEMOGLOBIN 11.5 g/dL (11.0-16.0); LYMPH # 0.9 K/uL (1.0-4.3); LYMPH % 11.1 % (20.0-40.0); MEAN CELL VOLUME 83.7 fL (81.0-99.0); MEAN CORPUSCULAR HEMOGLOBIN 28.5 pg (27.0-31.0); MEAN PLATELET VOLUME 8.4 fL (7.2-11.7); MONO # 0.8 K/uL (0.0-0.8); MONO % 9.3 % (0.0-10.0); NEUT # 6.3 K/uL (1.8-7.0); NEUT % 73.4 % (50.0-75.0); RBC 4.04 Mil/uL (3.80-5.20); RED CELL DISTRIBUTION WIDTH 14.4 % (11.5-14.5); WHITE BLOOD COUNT 8.6 K/uL (4.8-10.8)
[2017-10-08 07:56] LABS: ALB/GLOB RATIO 1.2 (1.0-2.1); ALBUMIN 3.4 g/dL (3.5-5.0); ALT/SGPT 40 U/L (9-52); AST/SGOT 42 U/L (14-36); BLOOD UREA NITROGEN 7 mg/dL (7-17); CALCIUM 9.1 mg/dl (8.6-10.4); GFR AFRICAN-AMERICAN > 60; GFR NON-AFRICAN AMERICAN > 60
[2017-10-08] MEDS: Insulin Detemir 100 units/ml Vial (Levemir) SC SCH ×2 (08:00→22:18)
[2017-10-08] MEDS: (Novolin R) Insulin Human Regular 100 units/ml vial SC SCH ×4 (08:01→22:12)
[2017-10-08] MEDS: Potassium Chloride 20 mEq ER Tab PO SCH ×3 (10:15→17:28)
--- NOTE | 2017-10-08 17:15 | CP.PCM.PN ---
Subjective - Date & Time of Evaluation Date of Evaluation: 10/08/17 Time of Evaluation: 16:45 - Subjective Subjective: Patient c/o of poor appetite. On Glucerna supplement at this time Blood sugar however is still high. Adjustments in insulin dose done tolerated PT with moderate assistance Labs noted- repeat U/A- + hematuria with many bacteria and WBC's but culture showed no growth ADRIAN eval in progress. Objective - Vital Signs/Intake and Output Vital Signs (last 24 hours): Temp Pulse Resp BP Pulse Ox 99.5 F 90 20 162/72 H 95 10/08/17 07:00 10/08/17 07:00 10/08/17 07:00 10/08/17 07:00 10/08/17 07:00 Intake and Output: 10/08/17 10/08/17 06:59 18:59 Intake Total 800 1400 Balance 800 1400 - Medications Medications: Current Medications Amlodipine Besylate (Norvasc) 5 mg PO DAILY [facility] Clonidine HCl (Catapres-Tts2 0.2 Mg/24 Hr) 1 patch TD Q7D@1000 [facility] Last Admin: 10/07/17 12:14 Dose: 1 patch Clopidogrel Bisulfate (Plavix) 75 mg PO DAILY [facility] Last Admin: 10/08/17 10:16 Dose: 75 mg Heparin Sodium (Porcine) (Heparin) 5,000 units SC Q12 [facility] Last Admin: 10/08/17 10:15 Dose: 5,000 units Sodium Chloride (Sodium Chloride 0.9%) 1,000 mls @ 100 mls/hr IV .Q10H [facility] Last Admin: 10/08/17 09:27 Dose: Not Given Insulin Detemir (Levemir) 14 unit SC [facility] Last Admin: 10/08/17 08:00 Dose: 14 units Insulin Human Regular (Novolin R) 0 unit SC [facility] PRN Reason: Protocol Last Admin: 10/08/17 12:58 Dose: 1 units Labetalol HCl (Trandate) 200 mg PO BID [facility] Last Admin: 10/08/17 10:13 Dose: 200 mg Losartan Potassium (Cozaar) 100 mg PO DAILY [facility] Last Admin: 10/08/17 10:14 Dose: 100 mg Metformin HCl (Glucophage) 850 mg PO BID [facility] Last Admin: 10/08/17 10:13 Dose: 850 mg Metoclopramide HCl (Reglan) 5 mg PO 0600,1130,1630 [facility] Last Admin: 10/08/17 12:23 Dose: 5 mg Montelukast Sodium (Singulair) 10 mg PO [facility] Last Admin: 10/07/17 22:00 Dose: 10 mg Potassium Chloride (K-Dur 20 Meq Er Tab) 20 meq PO TID [facility] Last Admin: 10/08/17 14:26 Dose: 20 meq Rosuvastatin Calcium (Crestor) 20 mg PO HS [facility] Last Admin: 10/07/17 22:00 Dose: 20 mg Sitagliptin Phosphate (Januvia) 100 mg PO DAILY [facility] Last Admin: 10/08/17 10:18 Dose: 100 mg - Labs Labs: 10/08/17 07:27 10/08/17 07:27 - Constitutional Appears: No Acute Distress - Head Exam Head Exam: NORMAL INSPECTION - Eye Exam Eye Exam: Normal appearance - ENT Exam ENT Exam: Normal Exam - Neck Exam Neck Exam: Normal Inspection - Respiratory Exam Respiratory Exam: Clear to Ausculation Bilateral, NORMAL BREATHING PATTERN - Cardiovascular Exam Cardiovascular Exam: REGULAR RHYTHM, +S1, +S2 - GI/Abdominal Exam GI & Abdominal Exam: Soft, Normal Bowel Sounds - Neurological Exam Neurological Exam: Alert, Awake, Oriented x3 Neuro motor strength exam: Left Upper Extremity: 3, Right Upper Extremity: 5, Left Lower Extremity: 3, Right Lower Extremity: 5 - Psychiatric Exam Psychiatric exam: Normal Affect, Normal Mood - Skin Skin Exam: Dry, Intact, Normal Color, Warm Assessment and Plan (1) UTI (urinary tract infection) Assessment & Plan: repeat U/A- many bacteria and WBC's, will get renal u/s Continue Cipro Status: Acute (2) Hypokalemia Assessment & Plan: continue KCl supplement. Will repeat BMP. Status: Resolved (3) Weight loss of more than 10% body weight Assessment & Plan: appetite remains poor. on Glucerna supplement Status: Chronic (4) Diabetes mellitus Assessment & Plan: Blood sugar still high but lower than previous days on increasing insulin. Status: Chronic (5) Hypertension Status: Chronic (6) Left-sided weakness Assessment & Plan: On PT. ADRIAN oconnell in progress Status: Chronic
--- NOTE | 2017-10-09 07:15 | CP.PCM.PN ---
Subjective - Date & Time of Evaluation Date of Evaluation: 10/09/17 Time of Evaluation: 07:15 - Subjective Subjective: Ms. Burrows was seen and examined at the bedside. She is alert, oriented in all spheres. She denies any dizziness, weakness, headache, nausea, or vomiting. She is able to follow simple commands with her left side is weaker than the right side and able to let staff know her immediate needs. She has the SCD on her bilateral lower extremities. Educated the patient regarding the importance of hydration and glycemic control, verbalizes understanding.MRi of the brain showed no acute findings but showed old lacunar infarct.There was no untoward events overnight. Objective - Vital Signs/Intake and Output Vital Signs (last 24 hours): Temp Pulse Resp BP Pulse Ox 98.5 F 87 20 112/65 96 10/08/17 23:10 10/08/17 23:10 10/08/17 23:10 10/08/17 23:10 10/08/17 23:10 - Medications Medications: Current Medications Amlodipine Besylate (Norvasc) 5 mg PO DAILY [facility] Last Admin: 10/08/17 17:27 Dose: 5 mg Clonidine HCl (Catapres-Tts2 0.2 Mg/24 Hr) 1 patch TD Q7D@1000 [facility] Last Admin: 10/07/17 12:14 Dose: 1 patch Clopidogrel Bisulfate (Plavix) 75 mg PO DAILY [facility] Last Admin: 10/08/17 10:16 Dose: 75 mg Heparin Sodium (Porcine) (Heparin) 5,000 units SC Q12 [facility] Last Admin: 10/08/17 21:30 Dose: 5,000 units Insulin Detemir (Levemir) 14 unit SC [facility] Last Admin: 10/08/17 22:18 Dose: 14 units Insulin Human Regular (Novolin R) 0 unit SC [facility] PRN Reason: Protocol Last Admin: 10/08/17 22:12 Dose: Not Given Labetalol HCl (Trandate) 200 mg PO BID [facility] Last Admin: 10/08/17 17:27 Dose: 200 mg Losartan Potassium (Cozaar) 100 mg PO DAILY [facility] Last Admin: 10/08/17 10:14 Dose: 100 mg Metformin HCl (Glucophage) 850 mg PO BID [facility] Last Admin: 10/08/17 17:27 Dose: 850 mg Metoclopramide HCl (Reglan) 5 mg PO 0600,1130,1630 [facility] Last Admin: 10/09/17 05:38 Dose: 5 mg Montelukast Sodium (Singulair) 10 mg PO [facility] Last Admin: 10/08/17 21:30 Dose: 10 mg Potassium Chloride (K-Dur 20 Meq Er Tab) 20 meq PO TID [facility] Last Admin: 10/08/17 17:28 Dose: 20 meq Rosuvastatin Calcium (Crestor) 20 mg PO HS [facility] Last Admin: 10/08/17 21:30 Dose: 20 mg Sitagliptin Phosphate (Januvia) 100 mg PO DAILY [facility] Last Admin: 10/08/17 10:18 Dose: 100 mg - Labs Labs: 10/08/17 07:27 10/08/17 07:27 - Constitutional Appears: No Acute Distress - Head Exam Head Exam: NORMAL INSPECTION - Eye Exam Pupil Exam: PERRL - Neurological Exam Neurological Exam: Alert, Awake, Oriented x3 Neuro motor strength exam: Left Upper Extremity: 3, Right Upper Extremity: 4, Left Lower Extremity: 3, Right Lower Extremity: 4 Additional comments: neurological unchanged from previous examination. Assessment and Plan (1) Left-sided weakness Assessment & Plan: Continue all current medical, physical, and occupational therapies. Recommend normal saline IVF for hydration ( please reduce if blood pressure is elevated above 180), glycemic control, keep the head elevated at least 30 degrees. Status: Chronic
[2017-10-09 07:55] LABS: BLOOD UREA NITROGEN 10 mg/dL (7-17); GFR AFRICAN-AMERICAN > 60; GFR NON-AFRICAN AMERICAN > 60
[2017-10-09] MEDS: (Novolin R) Insulin Human Regular 100 units/ml vial SC SCH ×2 (07:58→12:44)
[2017-10-09] MEDS: Insulin Detemir 100 units/ml Vial (Levemir) SC SCH (07:58)
[2017-10-09] MEDS: Potassium Chloride 20 mEq ER Tab PO SCH (09:00)
--- NOTE | 2017-10-09 10:22 | US ---
Date of service: 10/08/2017 PROCEDURE: Ultrasound of the Kidneys HISTORY: hematuria COMPARISON: None available. TECHNIQUE: Sonogram of the kidneys. FINDINGS: RIGHT KIDNEY: Measures: 10.6 x 4.8 x 5.5 cm. 3 mm upper and midpole nonobstructive calculi. Normal in size, contour and echogenicity. No solid mass lesion or hydronephrosis visualized. LEFT KIDNEY: Measures: 10.9 x 5.1 x 5.9 cm. 6 mm mid pole nonobstructive calculus. Normal in size, contour and echogenicity. No solid mass lesion or hydronephrosis visualized. OTHER FINDINGS: Prevoid urinary bladder volume measures 248.2 cc. Postvoid residual volume measures 111.2 cc. Bilateral ureteral jets were visualized. IMPRESSION: Nonobstructive bilateral 3-6 mm calculi. Postvoid residual volume of 111.2 cc.
--- NOTE | 2017-10-09 13:19 | CP.PCM.DIS ---
Provider - Provider Date of Admission: 10/05/17 00:30 Attending physician: Amelia Banuelos MD Primary care physician: Ivory Banuelos Consults: Dr. Sadia Samuels Time Spent in preparation of Discharge (in minutes): 45 Diagnosis - Discharge Diagnosis (1) UTI (urinary tract infection) Status: Acute Priority: Medium Comment: Patient currently on po Cipro. U/A continue to show some bacteria and WBC's but patient feeling better, afebrile. Aso Has hemturia. Renal u/s showed bilateral non-obstructive renal calculi. (2) Hypokalemia Status: Resolved Comment: K back to normal. D/c K. (3) Weight loss of more than 10% body weight Status: Chronic Priority: Medium Comment: appetite still poor but tolerating diet. Continue supplements (4) Diabetes mellitus Status: Chronic Priority: Medium Comment: blood sugar trending down. Meds need to continue to be adjusted according to accucheck sugar level. Continue current meds in the meantime. (5) Hypertension Status: Chronic Priority: Medium Comment: controlled on current meds. Continue same. (6) Left-sided weakness Status: Chronic Priority: Medium Comment: continue PT/OT at the [facility]. Hospital Course - Lab Results Lab Results: Micro Results 10/05/17 07:18 Urine,Clean Catch Urine Culture - Final No Growth (<1,000 CFU/ML) Most Recent Lab Values WBC 8.6 K/uL (4.8-10.8) 10/08/17 07:27 RBC 4.04 Mil/uL (3.80-5.20) 10/08/17 07:27 Hgb 11.5 g/dL (11.0-16.0) 10/08/17 07:27 Hct 33.9 % (34.0-47.0) L 10/08/17 07:27 MCV 83.7 fL (81.0-99.0) 10/08/17 07:27 MCH 28.5 pg (27.0-31.0) 10/08/17 07:27 MCHC 34.0 g/dL (33.0-37.0) 10/08/17 07:27 RDW 14.4 % (11.5-14.5) 10/08/17 07:27 Plt Count 229 K/uL (130-400) 10/08/17 07:27 MPV 8.4 fL (7.2-11.7) 10/08/17 07:27 Neut % (Auto) 73.4 % (50.0-75.0) 10/08/17 07:27 Lymph % (Auto) 11.1 % (20.0-40.0) L 10/08/17 07:27 [place] % (Auto) 9.3 % (0.0-10.0) 10/08/17 07:27 Eos % (Auto) 5.3 % (0.0-4.0) H 10/08/17 07:27 Baso % (Auto) 0.9 % (0.0-2.0) 10/08/17 07:27 Neut # (Auto) 6.3 K/uL (1.8-7.0) 10/08/17 07:27 Lymph # (Auto) 0.9 K/uL (1.0-4.3) L 10/08/17 07:27 [place] # (Auto) 0.8 K/uL (0.0-0.8) 10/08/17 07:27 Eos # (Auto) 0.5 K/uL (0.0-0.7) 10/08/17 07:27 Baso # (Auto) 0.1 K/uL (0.0-0.2) 10/08/17 07:27 Neutrophils % (Manual) 83 % (50-75) H 10/06/17 07:39 Lymphocytes % (Manual) 7 % (20-40) L 10/06/17 07:39 Reactive Lymphs % 1 % (0-0) H 10/06/17 07:39 Monocytes % (Manual) 7 % (0-10) 10/06/17 07:39 Eosinophils % (Manual) 2 % (0-4) 10/06/17 07:39 Platelet Estimate Normal (NORMAL) 10/06/17 07:39 Ovalocytes Slight 10/06/17 07:39 Sodium 140 mmol/L (132-148) 10/09/17 07:28 Potassium 4.1 mmol/L (3.6-5.2) 10/09/17 07:28 Chloride 107 mmol/L (98-107) 10/09/17 07:28 Carbon Dioxide 25 mmol/L (22-30) 10/09/17 07:28 Anion Gap 12 (10-20) 10/09/17 07:28 BUN 10 mg/dL (7-17) 10/09/17 07:28 Creatinine 0.8 mg/dL (0.7-1.2) 10/09/17 07:28 Est GFR ( Amer) > 60 10/09/17 07:28 Est GFR (Non-Af Amer) > 60 10/09/17 07:28 POC Glucose (mg/dL) 235 mg/dL (65-110) H 10/09/17 11:07 Random Glucose 183 mg/dL (65-105) H 10/09/17 07:28 Hemoglobin A1c 9.2 % (4.2-6.5) H D 10/06/17 07:39 Calcium 9.0 mg/dl (8.6-10.4) 10/09/17 07:28 Magnesium 1.7 mg/dL (1.6-2.3) 10/06/17 07:39 Total Bilirubin 0.7 mg/dL (0.2-1.3) 10/08/17 07:27 AST 42 U/L (14-36) H 10/08/17 07:27 ALT 40 U/L (9-52) 10/08/17 07:27 Alkaline Phosphatase 91 U/L (38-126) 10/08/17 07:27 Troponin I 0.0370 ng/mL (0.00-0.120) 10/05/17 01:43 Total Protein 6.2 g/dL (6.3-8.3) L 10/08/17 07:27 Albumin 3.4 g/dL (3.5-5.0) L 10/08/17 07:27 Globulin 2.8 gm/dL (2.2-3.9) 10/08/17 07:27 Albumin/Globulin Ratio 1.2 (1.0-2.1) 10/08/17 07:27 Triglycerides 200 mg/dL (0-149) H 10/05/17 01:43 Cholesterol 104 mg/dL (0-199) 10/05/17 01:43 LDL Cholesterol Direct 30 mg/dL (0-129) 10/05/17 01:43 HDL Cholesterol 38 mg/dL (30-70) 10/05/17 01:43 Vitamin B12 621 pg/mL (239-931) 10/06/17 07:39 Homocysteine 13.2 umol/L (4.7-12.6) H 10/06/17 10:09 Thyroxine (T4) 12.8 ug/dL (5.5-11.0) H 10/06/17 10:09 Total T3 1.29 nmol/L (1.49-2.60) L 10/06/17 10:09 TSH 3rd Generation 1.36 mIU/L (0.46-4.68) 10/06/17 10:09 Urine Color Straw (YELLOW) 10/07/17 22:23 Urine Clarity Sl hazy (Clear) 10/07/17 22:23 Urine pH 6.0 (5.0-8.0) 10/07/17 22:23 Ur Specific [place] 1.005 (1.003-1.030) 10/07/17 22:23 Urine Protein Negative mg/dL (NEGATIVE) 10/07/17 22:23 Urine Glucose (UA) 3+ mg/dL (Normal) H 10/07/17 22:23 Urine Ketones Negative mg/dL (NEGATIVE) 10/07/17 22:23 Urine Blood 2+ (NEGATIVE) H 10/07/17 22:23 Urine Nitrate Negative (NEGATIVE) 10/07/17 22:23 Urine Bilirubin Negative (NEGATIVE) 10/07/17 22:23 Urine Urobilinogen Normal mg/dL (0.2-1.0) 10/07/17 22:23 Ur Leukocyte Esterase Neg [place]/uL (Negative) 10/07/17 22:23 Urine WBC (Auto) 4 /hpf (0-5) 10/07/17 22:23 Urine RBC (Auto) 11 /hpf (0-3) H 10/07/17 22:23 Ur Squamous Epith Cells 1 /hpf (0-5) 10/07/17 22:23 Urine Bacteria Many (<OCC) H 10/07/17 22:23 Hyaline Casts 3-5 /lpf (0-2) H 10/05/17 02:53 Urine Yeast (Budding) Mod /hpf (NEGATIVE) H 10/07/17 22:23 - Hospital Course Hospital Course: This is a 72y/o female patient who was admitted through the ER because of weakness and perceived worsening L hemiparesis noted on the morning of admission. About 1-2 weeks prior to admission, patient has complained of on and off nausea and vomiting, constantly regurgitating liquid which she attributed to her GERD. She has been on omeprazole but seems unable to control the symptom. She also lost appetite and has lost significant weight loss that most likely contributed to the weakness. In the ER she was found to have a markedly abnormal U/A and hematuria which was treated empirically with IV antibiotic. Neuro consultation was obtained and Patient was sent for CT Scan and MRI of the Brain, MRA of the neck and head. There was no new infarct seen on the MRI. and the MRA did not show an significant obstruction of the extracranial arteries. She had an echocardiogram done at the beginning of the year that showed mild caoncentric LVH and diastolic dysfunction with normal systolic function. She has mild MR, TR and there was no dilatation of any of the cardiac chambers. There was no thrombus noted. Consultation was also obtained with PT and OT who then started her on her feet again. Bllod sugar was monitored and diabetic meds were also adjusted accordingly. The patient gradually improved and able to get OOB and walk with walker with assistance. Arrangements were then made for discharge to [facility] for further recupertaion. Discharge Exam - Head Exam Head Exam: NORMAL INSPECTION Discharge Plan - Follow Up Plan Condition: FAIR Disposition: HOME/ ROUTINE
[2017-10-09 16:49] VITALS: BP 108/63; PULSE 84; RESP 20; TEMP 98.7; O2SAT 96
== END 2017-10-09 16:43 | DRG 57 ==
LOC: C.ER 23:40 → C.9E 10-05 00:30 → C.6T 10-05 02:18
PROVIDERS: ADMIT Internal Medicine Cardiovascular Disease; ATTEND Internal Medicine Cardiovascular Disease
DX: I69.254 Hemiplegia and hemiparesis following other nontraumatic intracranial hemorrhage affecting left non-dominant side (principal); N39.0 Urinary tract infection, site not specified; E87.6 Hypokalemia; I10 Essential (primary) hypertension; K21.9 Gastro-esophageal reflux disease without esophagitis; Z79.02 Long term (current) use of antithrombotics/antiplatelets; E78.00 Pure hypercholesterolemia, unspecified; E11.65 Type 2 diabetes mellitus with hyperglycemia; Z79.4 Long term (current) use of insulin